=== PATIENT | female | born 1975 | race Two or more races ===

== ENCOUNTER 2019-07-02 06:45 | Observation (INO) | payer OTHER ==
[2019-07-02] VITALS (14 sets, daily range): BP systolic 104–124; BP diastolic 51–71
[~2019-07-02] VITALS: Ht 157.5 cm; Wt 98.0 kg
[~2019-07-02 06:45] MED LIST: HYDROcodone/Acetamin 10/325 tab ORAL PRN; NKM
[2019-07-02] MEDS ORDERED: Dexamethasone 20mg/5ml IVP ONE (07:00)
[2019-07-02] MEDS ORDERED: ceFAZolin sod 1 GM in NS 55 ML IVPB ONE (07:00)
[2019-07-02] MEDS ORDERED: HYDROcodone/Acetamin 10/325 tab ORAL PRN ×2 (07:30)
[2019-07-02] MEDS ORDERED: HYDROmorphone 1mg/ml Carpuject SUBQ PRN (07:30)
[2019-07-02] MEDS ORDERED: LR 1000ml 1,000 ML IVLG SCH (08:29)
[2019-07-02] MEDS ORDERED: fentaNYL 100 mcg/2 mL IV PRN (08:30)
[2019-07-02] MEDS ORDERED: HYDROcodone/Acetamin 7.5/325 tab ORAL PRN (08:30)
[2019-07-02] MEDS ORDERED: Atropine Sulfate 0.4mg/ml inj IVP PRN (08:30)
[2019-07-02] MEDS ORDERED: Hydromorphone 0.5mg/0.5ml inj IVP PRN (08:30)
[2019-07-02] MEDS ORDERED: HYDROcodone/Acetamin 5/325 tab ORAL PRN (08:30)
[2019-07-02] MEDS ORDERED: Ketorolac 30mg Inj IV PRN ×2 (08:30)
[2019-07-02] MEDS ORDERED: Meperidine 50mg/ml Inj(FOR RIGORS ONLY) IVP PRN (08:30)
[2019-07-02] MEDS ORDERED: DiphenhydrAMINE 50mg/ml Inj IVP PRN (08:30)
[2019-07-02] MEDS ORDERED: LORazepam Inj 2mg/ml 1ml IV PRN (08:30)
[2019-07-02] MEDS ORDERED: oxyCODONE HCL/Acetaminophen 5/325mg ORAL PRN (08:30)
[2019-07-02] MEDS ORDERED: Acetaminophen (Non formulary) 100 ML IV ONE (08:30)
[2019-07-02] MEDS ORDERED: Midazolam 2mg/2ml Inj IVP PRN (08:30)
--- NOTE | 2019-07-02 08:37 | Anethesia Preoperative Eval ---
Anesthesia Pre-op PMH/ROS General Date of Evaluation: Jul 02, 2019 Time of Evaluation: 09:52 Anesthesiologist: Art ASA Score: ASA 2 Mallampati Score Class I : Soft palate, uvula, fauces, pillars visible Class II: Soft palate, uvula, fauces visible Class III: Soft palate, base of uvula visible Class IV: Only hard plate visible Mallampati Classification: Class II Surgeon: Veda Diagnosis: Back Pain Surgical Procedure: L4-5 Microdiscectomy, Decompression Anesthesia History: none Family History: no anesthesia problems Allergies: Coded Allergies: Shrimp (Verified Allergy, Mild, 06/29/19) ITCHING Medications: see eMAR Patient NPO?: Yes NPO Date: Jul 01, 2019 NPO Time: 2100 Past Medical History Hematology/Immune: Reports: anemia Other: obesity - BMI 40 Morbid Anesthesia Pre-op Phys. Exam Physician Exam Last Vital Signs Date Time Temp Pulse Resp B/P (MAP) Pulse Ox O2 Delivery O2 Flow Rate FiO2 07/02/19 07:33 98.2 62 18 124/71 (88) 100 07/02/19 07:29 Room Air Constitutional: NAD Neurologic: CN 2-12 intact Cardiovascular: RRR Respiratory: CTA Gastrointestinal: S/NT/ND Airway Exam Mallampati Score: Class II MO: full ROM: limited Teeth: missing, intact Anesthesia Pre-op A/P Labs Urine Test Test 07/02/19 07:00 Urine HCG, Qualitative Negative (NEGATIVE) Risk Assessment & Plan Assessment: ASA 2 Plan: GA, SED, GlideScope Go Status Change Before Surgery: No Pre-Antibiotics Dru Grams Ancef IV Given Within 1 Hr of Incision: Yes Time Given: 10:42 Connor Cordova MD Jul 02, 2019 08:37
--- NOTE | 2019-07-02 08:38 | Immediate Post-Op Evaluation ---
Immediate Post-Op Evalulation Immediate Post-Op Evalulation Procedure: L4-5 Microdiscectomy, Decompression Date of Evaluation: Jul 02, 2019 Time of Evaluation: 12:39 IV Fluids: 1000 LR Blood Products: 0 Estimated Blood Loss: 50 Urinary Output: 0 Blood Pressure Systolic: 124 Blood Pressure Diastolic: 67 Pulse Rate: 60 Respiratory Rate: 16 O2 Sat by Pulse Oximetry: 100 Temperature (Fahrenheit): 97.9 Pain Score (1-10): 2 Nausea: No Vomiting: No Complications 0 Patient Status: awake, reacts, patent, extubated, none Hydration Status: adequate Dru Grams Ancef IV Given Within 1 Hr of Incision: Yes Time Given: 10:42 Connor Cordova MD Jul 02, 2019 08:38
[2019-07-02] MEDS ORDERED: Docusate 100mg/10ml Liq NG SCH (09:00)
--- NOTE | 2019-07-02 09:17 | Pre-Procedure Note/Attestation ---
Pre-Procedure Note/Attestation Complete Prior to Procedure Planned Procedure: not applicable Procedure Narrative: Microdiscectomy L4-L5 Indications for Procedure Pre-Operative Diagnosis: pain radiculopathy Attestation I attest that I discussed the nature of the procedure; its benefits; risks and complications; and alternatives (and the risks and benefits of such alternatives ), prior to the procedure, with the patient (or the patient's legal community engagement representative). I attest that, if there was a reasonable possibility of needing a blood transfusion, the patient (or the patient's legal community engagement representative) was given the [facility] standardized written summary, pursuant to the [place] Blood Safety Act ([place] Health and Safety Code # 1645, as amended). I attest that I re-evaluated the patient just prior to the surgery and that there has been no change in the patient's H&P, except as documented below: Chris Mccollum MD Jul 02, 2019 09:17
[2019-07-02] MEDS ORDERED: Bacitracin 50000 Units Vial ONE (09:43)
[2019-07-02] MEDS ORDERED: Gelfoam Size TOPIC ONE (09:43)
[2019-07-02] MEDS ORDERED: Thrombin 5000 units TOPIC ONE (09:43)
[2019-07-02] MEDS ORDERED: Labetalol 5mg/ml 20ml vial IV ONE (10:00)
[2019-07-02] MEDS ORDERED: NS Irrig 1000ml ONE (10:00)
[2019-07-02] MEDS ORDERED: Propofol 1,000mg/ 100ml btl IV ONE (10:00)
[2019-07-02] MEDS ORDERED: Sterile Water Irrig 1000ml IRRIG ONE (10:00)
[2019-07-02] MEDS ORDERED: LR 1000ml ONE (10:00)
[2019-07-02] MEDS ORDERED: Rocuronium Bromide 50mg/5ml Inj IV ONE (10:00)
[2019-07-02] MEDS ORDERED: Dexamethasone 4mg/ml vial ONE (10:01)
[2019-07-02] MEDS ORDERED: Lidocaine 1% MPF 10mg/ml 5ml ONE (10:01)
[2019-07-02] MEDS ORDERED: Lidocaine 1% Plain 30 ml INJ ONE (10:01)
[2019-07-02] MEDS ORDERED: Sodium Chloride 10ml vial INJ ONE (10:01)
[2019-07-02] MEDS ORDERED: fentaNYL 100 mcg/2 mL IV ONE ×2 (10:09→11:17)
[2019-07-02] MEDS ORDERED: Glycopyrrolate 0.2mg/ml 1ml Vial ONE (11:37)
[2019-07-02] MEDS ORDERED: Neostigmine 1mg/ml 10ml Inj ONE (11:37)
[2019-07-02] MEDS ORDERED: Naloxone 0.4mg/ml Inj ONE (12:01)
--- NOTE | 2019-07-02 12:02 | Brief Operative Note ---
Immediate Post Operative Note Operative Note Pre-op Diagnosis: pain radiculopathy Procedure: Hemilaminotomy, discectomy Left L4-L5 Post-op Diagnosis: same as pre-op Findings: consistent w/pre-op dx studies Surgeon: Veda MARKS Histology Specialist: Edie YEE Anesthesiologist: Art MARKS Anesthesia: general Specimen: yes Complications: none Condition: stable Fluids: anesthesia Estimated Blood Loss: minimal Drains: none Implant(s) used?: No Chris Mccollum MD Jul 02, 2019 12:02
[2019-07-02] MEDS ORDERED: Naloxone 0.4mg/ml Inj IVP PRN (12:15)
--- NOTE | 2019-07-02 14:55 | NUR ---
NURSE NOTES: Received patient on bed in stable condition. Alert and oriented x4. Complain of pain 4/10 on surgical site and pain medication given by recovery nurse. Will continue to monitor. Surgical dressing intact and dry and ice pack applied. IV dressing intact and dry. Belonging checked. Bed lowest position. Call light within reach. Will continue to monitor.
[2019-07-02] MEDS ORDERED: D5 1/2NS 1,000 ML IV SCH (15:25)
[2019-07-02] MEDS ORDERED: Chloraseptic Spray 20mL Bottle ORAL PRN (15:25)
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
--- NOTE | 2019-07-02 17:04 | NUR ---
NURSE NOTES: Pt walked to restroom with assistance refused to use walker. Required to be reminded to change positions slowly. Log roll implemented. Instruction sheet for log roll provided. States she is not in pain but has difficulty placing self in a comfortable position. Tolerated fluids denied nausea. Denied dizziness after walking to restroom. Call light is in reach. Family member is at bedside
--- NOTE | 2019-07-02 17:11 | NUR ---
NURSE NOTES: V/S 132/61 p72, temp 99.7 r18 O2 saturation 97
[2019-07-02] MEDS ORDERED: Docusate 100mg cap ORAL SCH (18:00)
[2019-07-02] MEDS ORDERED: ceFAZolin sod 1 GM in D5W 55 ML IV SCH (18:30)
--- NOTE | 2019-07-02 18:30 | Operative Note - Dictated ---
DATE OF OPERATION: 07/02/2019 PRIMARY SURGEON: Chris Mccollum, Ph.D., M.D. CHARGE ACCOUNT IDENTIFICATION CLERK: NAKIA Navarrete. ANESTHESIOLOGIST: Connor Cordova M.D. ANESTHESIA: General with intubation. ESTIMATED BLOOD LOSS: Minimal. COMPLICATIONS: None. POSTOPERATIVE CONDITION: Good/stable. SPECIMEN: Disk fragments to pathology, L4-L5. ADMITTING PREOPERATIVE DIAGNOSIS: Post-trauma back pain/radiculopathy. POSTOPERATIVE DIAGNOSIS: Post-trauma back pain/radiculopathy. OPERATIVE PROCEDURE: 1. Left L4-5 hemilaminotomy. 2. Microdiscectomy. 3. Nerve root decompression. 4. High-powered magnification dissection. 5. SSEP monitoring. 6. Intraoperative fluoroscopy interpreted by surgeon. DESCRIPTION OF PROCEDURE: The patient was brought to the operating room and in the supine position, general anesthesia with intubation was induced. IV antibiotics, IV Decadron were administered 30 minutes prior to incision time. After appropriate position in the prone position, lumbodorsal spine was sterilely prepped. A spinal needle was placed percutaneously under sterile conditions through dermis epidermis into the subcutaneous tissue only and a cross-table fluoroscopic image was obtained, interpreted by surgeons demonstrating the correct level for incision placement. Needle was removed. Back was re-sterilely prepped and draped free in usual sterile fashion. A longitudinal incision over the appropriate interval was sharply placed through the dermis and epidermis. Electrocautery dissection was carried through the subcutaneous tissue to the level of the lumbodorsal fascia. It was incised and left in midline over the appropriate intervals. Marker was placed at the appropriate interval after subperiosteal elevation of paraspinal muscles and cross-table fluoroscopic image was obtained demonstrating a correct level for further dissection. Level was marked. Marker removed. Retractors placed. Hemilaminotomy was performed but not through the posterior longitudinal ligament/ligamentum flavum. Subperiosteal dissection of paraspinal muscles, left. Facet capsule maintained integrity. Pars articularis exposed. Retractors were appropriately placed. Hemilaminotomy inferior L4, superior L5 with [place] Hang bur and [place] rongeur dissection. No dural tears or leaks noted anytime during the procedure. Ligamentum flavum excised. Dissection carried lateral to the dural tube, nerve root sheath with decompression laterally and foraminotomy. Pars articularis integrity maintained. Microdiscectomy to a maximum depth of 12 mm after annular incision. No gross bleeding from the disk space. Disk space irrigated. No further fragments identified. General probing revealed no further compression of exiting nerve roots. Negative foraminal stenosis. Bleeding bone was cauterized with application of sterile wax. Re-irrigated with antibiotic-containing saline. Sequential reapproximation of the lumbodorsal fascia, subcutaneous tissue, dermis and epidermis. Surgical strips applied followed with sterile bandage maintained in place with tape. The patient was carefully turned from the prone to the supine position on the transport bed where she was awakened, extubated in the operating room, transported to postop recovery in good stable condition. Chris Mccollum M.D. DR: Olaf JOB#: [id number] CC:
--- NOTE | 2019-07-02 18:32 | NUR ---
NURSE NOTES: Pt tolerated meal no nausea or vomiting . V/S 130/80 pulse 90 t97.8 . No pain gait steady but slow. Discharge instructions to include, FAQ related to surgery, lumbar surgery facts, back exercises when tolerated. Pt informed of importance of not bending twisting or carrying heavy items. Educated on s/s of infection, fever , increase pain , warmth to site. Verbalized understanding. IV removed, discharged packet given escorted to exit along with significant other and sister. Pt in stable condition. Dr. Mccollum number included in packet along with symptoms to follow up with Dr Mccollum about
--- NOTE | 2019-07-02 18:37 | NUR ---
NURSE NOTES: Dose of antibiotics given possible side effects reported or noted.
[2019-07-03 09:54] VITALS: BP 104/87
--- NOTE | 2019-07-03 09:54 | 48 Hour Post Anesthesia Eval ---
Post Anesthesia Evaluation Procedure: L4-5 Microdiscectomy, Decompression Date of Evaluation: Jul 02, 2019 Time of Evaluation: 16:59 Blood Pressure Systolic: 104 0: 87 Pulse Rate: 92 Respiratory Rate: 16 Temperature (Fahrenheit): 97.5 O2 Sat by Pulse Oximetry: 98 Airway: patent Nausea: No Vomiting: No Pain Intensity: 2 Hydration Status: adequate Cardiopulmonary Status: Stable Mental Status/LOC: patient returned to baseline Follow-up Care/Observations: 0 Post-Anesthesia Complications: 0 Follow-up care needed: ready to discharge Connor Cordova MD Jul 03, 2019 09:54
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
== END 2019-07-02 18:30 | disposition home or self-care (01) ==
LOC: SDS 06:45 → EDSTATUS 07:00 → 3E 15:24
DX: M54.16 Radiculopathy, lumbar region (principal); E66.01 Morbid (severe) obesity due to excess calories; Z91.013 Allergy to seafood; Z68.39 Body mass index [BMI] 39.0-39.9, adult
CPT/HCPCS: 36415; 63047; 72020; 76000; 81025; 86850; 86900; 86901; 87081; J0690; J1100; J1170; J1885; J2001; J2250; J2310; J2405; J2704; J2710; J3010; 94003; 94150

== ENCOUNTER 2020-07-02 07:00 | Inpatient (IN) | payer OTHER ==
[~2020-07-02] VITALS: Ht 160 cm; Wt 103.0 kg
[~2020-07-02 07:00] MED LIST changes: -HYDROcodone/Acetamin 10/325 tab ORAL PRN
[2020-07-17] VITALS (18 sets, daily range): BP systolic 115–136; BP diastolic 60–78
[2020-07-17] MEDS ORDERED: NS Irrig 1000ml ONE (06:00)
[2020-07-17] MEDS ORDERED: Succinylcholine 20mg/ml 10ml vial ONE (06:00)
[2020-07-17] MEDS ORDERED: Sterile Water Irrig 1000ml IRRIG ONE (06:00)
--- NOTE | 2020-07-17 06:42 | Anethesia Preoperative Eval ---
Anesthesia Pre-op PMH/ROS General Date of Evaluation: Jul 17, 2020 Time of Evaluation: 07:01 Anesthesiologist: Art ASA Score: ASA 3 Mallampati Score Class I : Soft palate, uvula, fauces, pillars visible Class II: Soft palate, uvula, fauces visible Class III: Soft palate, base of uvula visible Class IV: Only hard plate visible Mallampati Classification: Class III Surgeon: Veda Diagnosis: Back Pain Surgical Procedure: ALIF L4-5, L5-S1 Anesthesia History: none Family History: no anesthesia problems Allergies: Coded Allergies: Shrimp (Verified Allergy, Mild, 06/29/19) ITCHING Medications: see eMAR Patient NPO?: Yes Past Medical History Cardiovascular: Reports: HTN Hematology/Immune: Reports: anemia Other: obesity - Morbid BMI 42 Anesthesia Pre-op Phys. Exam Physician Exam Last Vital Signs Date Time Temp Pulse Resp B/P (MAP) Pulse Ox O2 Delivery O2 Flow Rate FiO2 07/17/20 05:58 Room Air 07/17/20 05:56 98.2 79 18 117/72 (87) 97 Constitutional: NAD Neurologic: CN 2-12 intact Cardiovascular: RRR Respiratory: CTA Gastrointestinal: S/NT/ND Airway Exam Mallampati Score: Class III MO: limited ROM: limited Teeth: intact Anesthesia Pre-op A/P Labs Urine Test Test 07/17/20 05:35 Urine HCG, Qualitative Negative (NEGATIVE) Risk Assessment & Plan Assessment: ASA 3 Plan: GA, SED, GlideScope Status Change Before Surgery: No Pre-Antibiotics Dru Grams Ancef IV Given Within 1 Hr of Incision: Yes Time Given: 07:31 Connor Cordova MD Jul 17, 2020 06:42
[2020-07-17] MEDS ORDERED: Ropivacaine 5mg/ml Vial 30ml INJ ONE (06:43)
[2020-07-17] MEDS ORDERED: Lidocaine 1%/ 10mg/ml/EPI 0.01mg/ml 20ml INJ ONE (06:43)
[2020-07-17] MEDS ORDERED: Gelfoam Size TOPIC ONE (06:43)
[2020-07-17] MEDS ORDERED: Thrombin 5000 units TOPIC ONE (06:43)
[2020-07-17] MEDS ORDERED: Heparin 5000 units/ml inj ONE (06:43)
[2020-07-17] MEDS ORDERED: Lidocaine 1% MPF 10mg/ml 5ml ONE (06:44)
[2020-07-17] MEDS ORDERED: Lidocaine 1% Plain 30 ml INJ ONE ×3 (06:44→08:51)
[2020-07-17] MEDS ORDERED: Bupivacaine 0.5% Inj 30 ml vial INJ ONE (06:44)
[2020-07-17] MEDS ORDERED: Sodium Chloride 10ml vial INJ ONE (06:44)
[2020-07-17] MEDS ORDERED: Bacitracin 50000 Units Vial ONE (06:44)
[2020-07-17] MEDS ORDERED: Hydromorphone 0.5mg/0.5ml inj IVP PRN (06:45)
[2020-07-17] MEDS ORDERED: Meperidine 25mg/1ml Inj (FOR RIGORS ONLY) IV PRN (06:45)
[2020-07-17] MEDS ORDERED: LR 1000ml 1,000 ML IVLG SCH (06:45)
[2020-07-17] MEDS ORDERED: Acetaminophen (Non formulary) 100 ML IV ONE (06:45)
[2020-07-17] MEDS ORDERED: Ketorolac 30mg Inj IV PRN ×2 (06:45)
[2020-07-17] MEDS ORDERED: fentaNYL 100 mcg/2 mL IV PRN (06:45)
[2020-07-17] MEDS ORDERED: Labetalol 5mg/ml 20ml vial IV PRN (06:45)
[2020-07-17] MEDS ORDERED: Atropine Sulfate 0.4mg/ml inj IVP PRN (06:45)
[2020-07-17] MEDS ORDERED: oxyCODONE HCL/Acetaminophen 5/325mg ORAL PRN (06:45)
[2020-07-17] MEDS ORDERED: DiphenhydrAMINE 50mg/ml Inj IVP PRN (06:45)
[2020-07-17] MEDS ORDERED: HYDROcodone/Acetamin 5/325 tab ORAL PRN (06:45)
[2020-07-17] MEDS ORDERED: HYDROcodone/Acetamin 7.5/325 tab ORAL PRN (06:45)
[2020-07-17] MEDS ORDERED: Midazolam 2mg/2ml Inj IVP PRN (06:45)
[2020-07-17] MEDS ORDERED: LORazepam Inj 2mg/ml 1ml IV PRN (06:45)
[2020-07-17] MEDS ORDERED: Metoclopramide 10mg/2ml Inj IVP PRN (06:45)
[2020-07-17] MEDS ORDERED: Rocuronium Bromide 50mg/5ml Inj IV ONE (06:48)
[2020-07-17] MEDS ORDERED: ceFAZolin sod 1 GM in NS 55 ML IVPB ONE (07:00)
--- NOTE | 2020-07-17 07:31 | Pre-Procedure Note/Attestation ---
Pre-Procedure Note/Attestation Complete Prior to Procedure Planned Procedure: not applicable Procedure Narrative: ALIF L4-L5, L5-S1, Anterior Plate Fixation Indications for Procedure Pre-Operative Diagnosis: Post trauma discogenic backpain Attestation I attest that I discussed the nature of the procedure; its benefits; risks and complications; and alternatives (and the risks and benefits of such alternatives), prior to the procedure, with the patient (or the patient's legal market survey representative). I attest that, if there was a reasonable possibility of needing a blood transfusion, the patient (or the patient's legal market survey representative) was given the [place] [facility] Services standardized written summary, pursuant to the Jose Manuel [place] Blood Safety Act ([place] Health and Safety Code # 1645, as amended). I attest that I re-evaluated the patient just prior to the surgery and that there has been no change in the patient's H&P, except as documented below: Chris Mccollum MD Jul 17, 2020 07:31
--- NOTE | 2020-07-17 08:05 | Immediate Post-Op Evaluation ---
Immediate Post-Op Evalulation Immediate Post-Op Evalulation Procedure: ALIF L4-6, L5-S1 Date of Evaluation: Jul 17, 2020 Time of Evaluation: 10:57 IV Fluids: 800 LR Blood Products: 0 Estimated Blood Loss: 50 Urinary Output: 300 Blood Pressure Systolic: 141 Blood Pressure Diastolic: 62 Pulse Rate: 95 Respiratory Rate: 16 O2 Sat by Pulse Oximetry: 100 Temperature (Fahrenheit): 97 Pain Score (1-10): 2 Nausea: No Vomiting: No Complications 0 Patient Status: awake, reacts, patent, extubated, none Hydration Status: adequate Dru Grams Ancef IV Given Within 1 Hr of Incision: Yes Time Given: 07:31 Connor Cordova MD Jul 17, 2020 08:05
[2020-07-17] MEDS ORDERED: fentaNYL 100 mcg/2 mL IV ONE (08:49)
[2020-07-17] MEDS ORDERED: Glycopyrrolate 0.2mg/ml 1ml Vial ONE (10:06)
--- NOTE | 2020-07-17 10:16 | Brief Operative Note ---
Immediate Post Operative Note Operative Note Pre-op Diagnosis: Post trauma discogenic backpain Procedure: ALIF L4-L5, L5-S1 Anterior Plates L4-L5, L5-S1 osteopromotive Bio4 material Titanium interbody devices Anterior Plates L4-L5, L5-S1 Post-op Diagnosis: same as pre-op Findings: consistent w/pre-op dx studies Surgeon: Veda avina Additional Surgeons: Rusty AVINA Anesthesiologist: Art AVINA Anesthesia: general Specimen: yes Complications: none Condition: stable Fluids: anesthesia Estimated Blood Loss: minimal Drains: none Implant(s) used?: Yes Chris Mccollum MD Jul 17, 2020 10:16
[2020-07-17] MEDS ORDERED: HYDROmorphone 1mg/ml Carpuject SUBQ PRN (10:30)
[2020-07-17] MEDS ORDERED: Naloxone 0.4mg/ml Inj IVP PRN (10:30)
[2020-07-17] MEDS ORDERED: PCA HYDROmorphone 1mg/ml 30 ML IV PRN ×3 (10:30→12:30)
[2020-07-17] MEDS ORDERED: Chloraseptic Spray 20mL Bottle ORAL PRN (10:30)
[2020-07-17] MEDS ORDERED: HYDROcodone/Acetamin 10/325 tab ORAL PRN (10:30)
--- NOTE | 2020-07-17 10:51 | 48 Hour Post Anesthesia Eval ---
Post Anesthesia Evaluation Procedure: ALIF L4-6, L5-S1 Date of Evaluation: Jul 17, 2020 Time of Evaluation: 13:23 Blood Pressure Systolic: 124 0: 71 Pulse Rate: 81 Respiratory Rate: 18 Temperature (Fahrenheit): 98 O2 Sat by Pulse Oximetry: 99 Airway: patent Nausea: No Vomiting: No Pain Intensity: 2 Cardiopulmonary Status: Stable Mental Status/LOC: patient returned to baseline Follow-up Care/Observations: 0 Post-Anesthesia Complications: 0 Follow-up care needed: N/A Connor Cordova MD Jul 17, 2020 10:51
[2020-07-17] MEDS ORDERED: Rate Change PCA 1 Each MISC PRN (11:30)
[2020-07-17] MEDS ORDERED: PCA Education Pamphlet MISC SCH (11:45)
--- NOTE | 2020-07-17 12:35 | NUR ---
NURSE NOTES: Patient received from PACU via bed to 321-2 on O2 3LNC, in stable condition. Patient sleeping, awakens easily to name. Neuro checks done, skin warm, wiggles, 3/5, pulses palpable. IV/SENIOR INFORMATICA DEVELOPER (Dilaudid 0.2 mg bolus/every 10 minutes/4.8 mg lockout) to left hand, site asymptomatic. Anterior abdomen surgical dressing CDI, ice pack in place. Bilateral SCDs on. FC, y/cl in drainage bag. Clear liquids provided. Denies pain, SOB, NV. Belongings reviewed, all at bedside. Oriented patient to call light/SENIOR INFORMATICA DEVELOPER button, bed in lowest position, will continue to monitor. Called RT for CO2 monitoring and IS. Chloraseptic spray at bedside.
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
[2020-07-17] MEDS: D5 1/2NS 1,000 ML IV SCH ×2 (13:27→21:00)
--- NOTE | 2020-07-17 14:22 | NUR ---
NURSE NOTES: Spoke to Dr. Massey regarding patient current status. Orders received for "clear liquids only". Will follow as ordered.
--- NOTE | 2020-07-17 14:27 | Diagnostic Imaging Report ---
INDICATION: Pain, intraoperative TECHNIQUE: Intraoperative imaging Fluoroscopy time: 30 seconds Total dose: 0.94817 mGym2 Total number of images: 3 COMPARISON: None FINDINGS: Intraoperative images demonstrate surgical tools projected anterior to what are presumably the L4-5 disc and L5 vertebral body. Subsequent images demonstrate anterior fusion hardware bridging L4-5 and L5-S1. IMPRESSION: Intraoperative imaging, as described
--- NOTE | 2020-07-17 16:14 | Operative Note - Dictated ---
DATE OF OPERATION: 07/17/2020 VASCULAR SURGEON: Laurent Ojeda MD SPINE SURGEON: Chris Mccollum MD PREOPERATIVE DIAGNOSIS: Lumbar pain. POSTOPERATIVE DIAGNOSIS: Lumbar pain. PROCEDURE: 1. Anterior retroperitoneal exposure of L4-L5 vertebral interspace, left retroperitoneal approach. 2. Anterior retroperitoneal exposure of L5-S1 vertebral interspace, left retroperitoneal approach. INDICATIONS: Patient is a very pleasant woman who is seen prior to surgery. She has been scheduled for anterior spine operation L4-L5 and L5-S1. She denies any prior anterior spine surgery. No history of deep vein thrombosis or bleeding complications were noted. She is noted to be obese with a BMI in the 35 to 40 range with a large abdominal pannus. The need for somewhat larger incision was carefully explained to her. She understands some increased risk with vascular surgery for closure of lumbar spine. The risks of vascular injury, possible need for blood transfusion, deep venous thrombosis were all discussed with her. DESCRIPTION OF FINDINGS: A vertical midline incision was used. A left retroperitoneal approach was used. There was no peritoneal or ureteral violation. There was no vascular injury. There was extensive scarring over the anterior surface of L5 due to an inflammatory and osteophytic reaction and the left iliac vein was densely adherent to the anterior surface of L5, making blood mobilization more difficult. However exposure of both L4-L5 and L5-S1 were able to be obtained without vascular injury. Upon completion, the peritoneum and ureter were intact. The iliac vessels were intact. Blood loss was less than 100 mL and complications were none. Patient had palpable femoral pedal pulses and normal pulse oximetry in the left foot as well as normal neurologic monitoring throughout the case. DESCRIPTION OF PROCEDURE: Patient was taken to the operative room. General anesthesia was induced. Antibiotics were given. Patient's abdomen was prepped and draped. Appropriate time-out was taken. A low vertical midline incision made infraumbilically. The anterior fascia incised longitudinally in the midline. A plane was identified posterior to the left rectus abdominal to the posterior bladder to the patient's left. Retroperitoneal space was bluntly entered below the arcuate line. The peritoneum and ureter mobilized towards the patient's right exposing the left common iliac artery and vein. Dissection was carried superiorly along the left iliac vessels and dissection was carried lateral to the left common iliac artery and vein. The overlying lymphatics were ligated with vascular clips. The iliolumbar vein was identified. It was encircled using a 2-0 silk tie and ligated proximally. It was then ligated proximally and distally with vascular clips. The L4 segmental artery and vein were also identified and ligated with vascular clips and divided. At this time, blunt dissection was used to mobilize the left iliac vein off the anterior surface of L4-L5. Inferior to L4-L5, the vein itself was quite adherent and careful blunt dissection was required to mobilize the vein off of the anterior surface of L4-L5. The Omni retractor blades were then placed. Fluoroscopy used to confirm the appropriate level. The instrumentation performed at L4-L5 dictated separately. below the iliac bifurcation and then dissection carried on the undersurface of left common iliac vein. The middle sacral artery and vein were identified, ligated with vascular clips and divided, and then once again, blunt dissection was used to mobilize the left iliac artery and vein superiorly and laterally. The Omni retractor blades were set in place. Fluoroscopy was once again used to confirm the appropriate level and then instrumentation was performed at the L5-S1 dictated separately. On completion, retractor was gently removed. The peritoneum and ureter were intact. Iliac vessels were intact. Anterior fascia was then closed using #1 PDS in running fashion and the skin and subcutaneous tissue were then closed with 3-0 Vicryl, 4-0 Monocryl in a running subcuticular closure technique. ESTIMATED BLOOD LOSS: Less than 100 mL. COMPLICATIONS: None. Laurent Ojeda M.D. DR: SCARLET JOB#: [id number] CC: Tianna Joseph M.D. ; FAX#: [phone]
[2020-07-17] MEDS: ceFAZolin sod 1 GM in D5W 55 ML IV SCH ×2 (16:25→23:30)
[2020-07-17] MEDS ORDERED: D5 1/2NS 1000ml IV ONE (16:34)
--- NOTE | 2020-07-17 16:44 | NUR ---
CASE MANAGEMENT:[age] YR OLD FEMALE FROM HOME FOR PLANNED SURGERY CC;POST TRAUMATIC DISCOGENIC BACK PAIN SI;OPERATIVE DAY: 1. Anterior retroperitoneal exposure of L4-L5 vertebral interspace, left retroperitoneal approach. 2. Anterior retroperitoneal exposure of L5-S1 vertebral interspace, left retroperitoneal approach. 98.2 98 20 135/69 97% ON RA RAPID COVID ~ NEGATIVE LUMBAR XRAY ~ ntraoperative images demonstrate surgical tools projected anterior to what are presumably the L4-5 disc and L5 vertebral body. Subsequent images demonstrate anterior fusion hardware bridging L4-5 and L5-S1. IS;CEFAZOLIN IV DILAUDID LAY HEALTH ADVOCATE IV DILAUDID IV DECADRON IV IVF LR ACETAMINOPHEN IV ADMITTED TO MED SURG FOR POST OP CARE MED SURG STATUS DCP;FROM HOME
[2020-07-17] MEDS: PCA shift volume MISC SCH (19:00)
--- NOTE | 2020-07-17 19:15 | Operative Note - Dictated ---
DATE OF OPERATION: 07/17/2020 SURGEON: Chris Mccollum, PhD, MD ADDITIONAL SURGEON: Laurent Ojeda MD, Vascular Surgery ADMITTING/PREOPERATIVE DIAGNOSIS: Posttraumatic discogenic back pain, failed back L4-L5, L5-S1. OPERATIVE PROCEDURE: 1. Anterior diskectomy with reconstruction/fusion correction deformity L4-L5, L5-S1. 2. Anterior internal plate fixation L4-L5, L5-S1. 3. Interbody titanium device was placed lordotic with correction deformity (internal fixation screws not integral to the interbody spacer) L4-L5, L5-S1. 4. Placement of osteopromotive material BIO-4 at L4-L5 and L5-S1. 5. SSEP monitoring. 6. High-powered dissection. 7. Intraoperative fluoroscopy interpreted by surgeons. PROCEDURE: Anterior exposure performed with Dr. Ojeda, Dr. Mccollum assist. Please see separate report for exposure and closure. The L5-S1 interval was determined with placement of a spinal needle 3 mm into the anterior disk space. ANESTHESIA: General with intubation, Dr. Chambers. ESTIMATED BLOOD LOSS: Minimal. COMPLICATIONS: None. POSTOPERATIVE CONDITION: Good/stable. SPECIMENS: Disk fragment L4-L5, L5-S1 to pathology. PROCEDURE: 1. Anterior lumbar interbody reconstruction and fusion with diskectomy L4-L5, L5-S1. 2. Correction deformity. 3. Placement of interbody devices titanium without integral internal fixation screws L4-L5, L5-S1. 4. Placement of osteopromotive material at L4-L5 and L5-S1. 5. Anterior internal plate fixation L4-L5, L5-S1. 6. SSEP monitoring. 7. High-powered magnification, dissection. 8. Intraoperative fluoroscopy interpreted by surgeons. PROCEDURE IN DETAIL: The patient was brought to the operating room and in the supine position, general anesthesia with intubation was induced. IV antibiotics, IV Decadron were administered 30 minutes prior to incision time. Anterior exposure - please see separate report Vascular Surgery, Dr. Ojeda. L4-L5 interval was identified with placement of a spinal needle 3 mm into the mid aspect with AP lateral fluoroscopic images obtained demonstrating correct level as well as midline. Annulotomy was performed sharply under high-power magnification. Diskectomy to but not through the posterior longitudinal ligament. End-plates denuded of cartilaginous endplates. Midas Hang bur dissection utilized for development of a flat plane of the inferior L4 vertebral body. Appropriate trials were utilized to determination of the appropriate spacer undertaken. Appropriate spacer opened sterilely and packed with osteopromotive material with local autograft. The spacer lordotic was tamped into excellent position AP and lateral planes. Patient remained stable at all times. Anterior internal plate fixation was undertaken in the bilateral cortical cancellous screws into the L4 and L5 vertebral bodies in a compressive fashion through the locking plate. Purchase was excellent. Attention was turned to the L5-S1 interval. Loss of disk space noted. Annulotomy performed sharply with diskectomy to the posterior longitudinal ligament. End-plates denuded of cartilaginous bone. Bleeding bone encountered without violation of the subchondral bone. After appropriate trials, the appropriate interbody titanium device was opened sterilely, packed with BIO-4 osteopromotive material with local autograft. It was tamped into excellent position under AP and lateral fluoroscopic images and direct observation. Anterior plate fixation undertaken in compressive mode with bilateral screws at L5 bilateral S1. Wound was irrigated with antibiotic-containing saline. Exploration did not reveal any laceration or violation of vital structures. No cerebrospinal fluid leakage was noted anytime during the procedure. SSEP monitoring remained stable throughout the procedure. Closure - please see separate dictation, Dr. Ojeda. Sterile bandage was applied, maintained in place with tape. Patient was awakened and extubated in the operating room and transported to postop recovery in good stable condition. Chris Mccollum M.D. DR: CHANO JOB#: [id number] CC:
--- NOTE | 2020-07-17 19:35 | NUR ---
NURSE HAND-OFF: Important Events on Shift:Post op patient received at 1235 Patient Status: stable Diet: clear liquids only (per Dr. Massey) Pending Orders: PT evaluation Pending Results/Labs:none Pending MD notification:none Latest Vital Signs: Temperature 98.1 , Pulse 88 , B/P 127 /78 , Respiratory Rate 16 , O2 SAT 100 , Nasal Cannula, O2 Flow Rate 2.0 . Vital Sign Comment: none Latest Godwin Fall Score: 45 Fall Risk: High Risk Safety Measures: Call light , Bed Alarm , Side Rails Side Rails x1, Bed position Low and Locked. Fall Precautions: Report given to Imelda MARTINEZ.
--- NOTE | 2020-07-17 19:40 | NUR ---
NURSE NOTES: Received report & pt from MICHELLE Calderón. Pt in bed, a&ox4, in room air. No s/s of acute distress & c/o 6/10 back pain, 9/10 hip pain, & 4/10 surgical site pain at this time. Will give PRN med as ordered & also pt has HORSE SHOW JUDGE. HORSE SHOW JUDGE setting checked. Kilpatrick intact & draining yellow urine output to gravity. Surgical dressing C/D/I. IV site intact with IVF running as ordered. HORSE SHOW JUDGE pump within reach. Plan of care discussed. Addendum: 07/17/20 at 6564 by Imelda Queen RN On O2 via NC @ 3LPM
--- NOTE | 2020-07-17 21:30 | NUR ---
NURSE NOTES: Assisted pt to chair, bed full of blood since per pt, she just got her period. Bed linen changed. Provided sanitary (maternity) pads. Cleaned pt's perineal area & helped put on underwear, made sure damon is not kinked. Assisted back to bed & provided new ice pack for surgical site. All needs met at this time & pt comfortable.
--- NOTE | 2020-07-17 23:21 | NUR ---
NURSE NOTES: Offered pt additional pain medication however pt didn't want any as of now. Pt comfortable using FIREWORKS ASSEMBLER & states it relieves her pain. RN told pt to call if she needs extra pain medication. Will continue to monitor.
[2020-07-18] MEDS: D5 1/2NS 1,000 ML IV SCH ×3 (04:01→20:15)
--- NOTE | 2020-07-18 05:02 | Pain Management Progress Note ---
Allergies: Coded Allergies: Shrimp (Verified Allergy, Mild, 06/29/19) ITCHING Vitals Vital Signs Date Time Temp Pulse Resp B/P (MAP) Pulse Ox O2 Delivery O2 Flow Rate FiO2 07/17/20 23:03 Nasal Cannula 2.0 Medications Current Medications Acetaminophen/ Butalbital/ Caffeine (Fioricet) 1 tab Q8H PRN ORAL headache; Start 07/17/20 at 10:30; Stop 08/16/20 at 10:29 Acetaminophen/ Hydrocodone Bitart ([place] 10/325) 1 tab Q3H PRN ORAL mild pain / fever; Start 07/17/20 at 10:30; Stop 07/24/20 at 10:29 Acetaminophen/ Hydrocodone Bitart ([place] 10/325) 2 tab Q4H PRN ORAL Moderate Pain (Pain Scale 4-6); Start 07/17/20 at 10:30; Stop 07/24/20 at 10:29 Al Hydroxide/Mg Hydroxide (Mylanta) 30 ml Q6H PRN ORAL gerd; Start 07/17/20 at 10:30; Stop 08/16/20 at 10:29 Carisoprodol (Soma) 350 mg Q8H PRN ORAL spasm; Start 07/17/20 at 10:30; Stop 08/16/20 at 10:29 Cefazolin Sodium 1 gm/Dextrose 55 ml @ 110 mls/hr Q8H IV Last administered on 07/17/20at 23:30; Start 07/17/20 at 16:00; Stop 07/18/20 at 08:29 Clonidine HCl (Catapres Tab) 0.1 mg Q8H PRN ORAL For High Blood Pressure; Start 07/17/20 at 10:30; Stop 10/15/20 at 10:29 Dextrose/Sodium Chloride 1,000 ml @ 125 mls/hr Q8H IV Last administered on 07/18/20at 04:01; Start 07/17/20 at 13:00; Stop 08/16/20 at 12:59 Diphenhydramine HCl (Benadryl) 25 mg Q6H PRN ORAL Itching; Start 07/17/20 at 10:30; Stop 08/16/20 at 10:29 Famotidine (Pepcid) 20 mg BID ORAL Last administered on 07/17/20at 18:42; Start 07/17/20 at 18:00; Stop 10/15/20 at 17:59 Hydromorphone HCl 30 ml @ 0 mls/hr Q24H PRN IV For Pain; Start 07/17/20 at 12:30; Stop 07/19/20 at 11:44 Hydromorphone HCl (Dilaudid) 1 mg Q3H PRN SUBQ Severe Breakthru Pain (>7); Start 07/17/20 at 10:30; Stop 07/24/20 at 10:29 Miscellaneous Medication (TRANSMISSION ASSEMBLER Rate Change) 1 ea DAILY PRN MISC rate change; Start 07/17/20 at 11:30; Stop 07/19/20 at 11:29 Miscellaneous Medication (TRANSMISSION ASSEMBLER shift volume) 1 ea Q12HR@0700,1900 MISC Last administered on 07/17/20at 19:00; Start 07/17/20 at 19:00; Stop 07/19/20 at 18:59 Naloxone HCl (Narcan) 0.1 mg PRN PRN IVP RR<12/min, pt unarousable; Start 07/17/20 at 10:30; Stop 10/15/20 at 10:29 Naloxone HCl (Narcan) 0.1 mg Q1M PRN IV RR<10/min OR SBP<90 mmHg; Start 07/17/20 at 11:45; Stop 07/19/20 at 11:44 Ondansetron HCl (Zofran) 4 mg Q4H PRN IVP Nausea & Vomiting Last administered on 07/17/20at 18:42; Start 07/17/20 at 10:30; Stop 08/16/20 at 10:29 Phenol/Menthol (Chloraseptic) 1 spray Q2H PRN ORAL sore throat Last administered on 07/17/20at 16:25; Start 07/17/20 at 10:30; Stop 10/15/20 at 10:29 Promethazine HCl (Phenergan) 12.5 mg Q8H PRN IM Nausea & Vomiting; Start 07/17/20 at 10:30; Stop 08/16/20 at 10:29 Laboratory Laboratory Tests 07/17/20 05:35: Urine HCG, Qualitative Negative Plan: I spent over sixty minutes in consultation today. A+O x 3; no SOB, CP. Neuro intact. Patient seen with nurse Martino. Continue TRANSMISSION ASSEMBLER as ordered until after lunch then d/c. Primarily left abdominal incisinal pain, which radiates to left hip. BMI 40; encouraged pt to be generous with pain meds, in order to ease out of bed with PT. Of note, pt is menstruating. Pt was using TID norco preop; considerable opioid-dependence. strongly encouraged pt to accept SQ dilaudid injections, and to use prn norco as ordered. MAR medication list reviewed. No emesis after ALIF. Await flatus. Remains NPO for now. GI: No BS No flatus No BM Encourage incentive spirometer usage. Encourage advancing ambulation with physical therapy as tolerated. SCDs for mechanical prophylaxis against deep venous thrombosis and PEs. Rx left for outpatient pain medication usage for #75 norco 10/325. Juan Massey MD Jul 18, 2020 05:02
--- NOTE | 2020-07-18 06:32 | NUR ---
NURSE HAND-OFF: Important Events on Shift: Dr. Massey seen pt, pt on her menstrual cycle, pain management with FLATTENING PRESS OPERATOR Dilaudid, pt eval needed Patient Status: stable Diet: clear liquid diet ONLY as ordered by Dr. Massey Pending Orders: none Pending Results/Labs:none Pending MD notification:none Latest Vital Signs: Temperature 98.1 , Pulse 88 , B/P 127 /78 , Respiratory Rate 16 , O2 SAT 100 , Nasal Cannula, O2 Flow Rate 2.0 . Vital Sign Comment: none Latest Godwin Fall Score: 45 Fall Risk: High Risk Safety Measures: Call light Within Reach, Bed Alarm , Side Rails Side Rails x2, Bed position Low and Locked. Fall Precautions: Yellow Socks Patient Fall Education Report given to . Addendum: 07/18/20 at 0739 by Imelda Queen RN Report given to MICHELLE Gamez.
[2020-07-18] MEDS ORDERED: LR 1000ml ONE (06:55)
[2020-07-18] MEDS: PCA shift volume MISC SCH ×2 (07:26→19:38)
--- NOTE | 2020-07-18 07:45 | NUR ---
NURSE NOTES: Pt lying in bed w/bed in lowest position and call light/HUMAN RESOURCES DIRECTOR button within reach. Pt A&Ox4, VSS, and c/o 5/10 pain; encouraged pt to press HUMAN RESOURCES DIRECTOR button as needed for pain relief. IV site intact/asymptomatic w/IVF infusing; F/C patent/draining well; and surgical dressing C/D/I. Will continue to monitor.
[2020-07-18 08:00] VITALS: BP 127/56
[2020-07-18] MEDS: ceFAZolin sod 1 GM in D5W 55 ML IV SCH (09:16)
--- NOTE | 2020-07-18 11:18 | NUR ---
P.T Note: P.T evaluation completed and tx initiated per spinal protocol. Please refer to P.T evaluation for current functional status.
[2020-07-18 12:00] VITALS: BP 116/58
--- NOTE | 2020-07-18 12:32 | NUR ---
CASE MANAGEMENT:REVIEW SI;POD #1 Anterior diskectomy with reconstruction/fusion correction deformity L4-L5, L5-S1. Anterior internal plate fixation L4-L5, L5-S1. Placement of osteopromotive material BIO-4 at L4-L5 and L5-S1. 98.1 88 18 127/78 100% 2L NC IS;CLINICAL AUDITOR PUMP PEPCID PO BID IVF D5NS IV @ 125 ML/HR CEFAZOLIN IV Q8 ZOFRAN IV Q4 PRN MED SURG STATUS DCP;FROM HOME
[2020-07-18] MEDS: HYDROcodone/Acetamin 10/325 tab ORAL PRN ×2 (15:53→20:12)
[2020-07-18 16:00] VITALS: BP 123/59
--- NOTE | 2020-07-18 19:30 | NUR ---
NURSE NOTES: Patient awake in bed, alert and oriented x4, on room air, no SOB noted. With IV access on the left hand with PRODUCT DEVELOPMENT TECHNICIAN dilaudid line per patient she doesn't use it (no more renewal after it expires tomorrow) and D5 1/2 NS @125ml/hr. With Simons catheter intact and draining well. Dressing on mid abdomen dry and intact. Encouraged the use of incentive spirometry. Instructed the use of call light for assistance. Bed in lowest and lock engaged. Will continue plan of care.
[2020-07-18 20:00] VITALS: BP 114/55
--- NOTE | 2020-07-18 20:24 | NUR ---
NURSE HAND-OFF: Important Events on Shift: Pt ambulated around unit twice w/PT and ambulates to bathroom; pt not yet passing gas. Patient Status: Stable Diet: Clear liquids (do NOT advance) Pending Orders: D/C F/C 07/19 0600 Pending Results/Labs:None Pending MD notification:None Latest Vital Signs: Temperature 97.9 , Pulse 76 , B/P 123 /59 , Respiratory Rate 18 , O2 SAT 97 , Nasal Cannula, O2 Flow Rate 2.0 . Vital Sign Comment: Stable Latest Godwin Fall Score: 45 Fall Risk: High Risk Safety Measures: Call light Within Reach, Bed Alarm , Side Rails Side Rails x2, Bed position Low and Locked. Fall Precautions: Yellow Socks Patient Fall Education Report given to MICHELLE Coto.
[2020-07-19] VITALS: BP 97/88
[2020-07-19 04:00] VITALS: BP 106/56
[2020-07-19] MEDS: HYDROcodone/Acetamin 10/325 tab ORAL PRN ×3 (04:14→23:55)
[2020-07-19] MEDS: D5 1/2NS 1,000 ML IV SCH (04:15)
--- NOTE | 2020-07-19 06:30 | NUR ---
NURSE NOTES: Simons catheter removed and pt was instructed to inform RN if she voided in 6 hours. Needs assisted.
[2020-07-19] MEDS: PCA shift volume MISC SCH (07:20)
--- NOTE | 2020-07-19 07:24 | NUR ---
NURSE HAND-OFF: Important Events on Shift: DC'd damon cath @ 6am, pain mgt, hygiene Patient Status: stable Diet: clear liquid Pending Orders: no renewal for geriatric nurse assistant Pending Results/Labs: Pending MD notification: Latest Vital Signs: Temperature 99.6 , Pulse 75 , B/P 106 /56 , Respiratory Rate 19 , O2 SAT 95 , Room Air, O2 Flow Rate 2.0 . Vital Sign Comment: Latest Godwin Fall Score: 45 Fall Risk: High Risk Safety Measures: Call light Within Reach, Bed Alarm , Side Rails Side Rails x2, Bed position Low and Locked. Fall Precautions: Yellow Socks Patient Fall Education Report given to MICHELLE Andres and Mr. Zen RN.
[2020-07-19 08:00] VITALS: BP 110/53
--- NOTE | 2020-07-19 08:12 | NUR ---
NURSE NOTES: Received report from Nnamdi MARTINEZ. Patient is awake and alert x4. Patient has left side IV 20g MECHANICAL COMMISSIONING ENGINEER dilaudid running with D5W 125 ml/hr. MECHANICAL COMMISSIONING ENGINEER will at 1141 today. Patient has anterior surgical site intact with no drainage. Her last BM was 07/15 and she still hasn't passed gas yet. But she goes to the bathroom to void. Bed is low and locked. Call light within reach. Will continue to monitor. Addendum: 07/19/20 at 0841 by Caio Zaldivar RN Patient refuses using dilaudid MECHANICAL COMMISSIONING ENGINEER. She complains of hip pain that radiates to her left leg which rated 6 out of 10. She wants [place] that she got during the night. Will continue to monitor
--- NOTE | 2020-07-19 08:41 | NUR ---
NURSE NOTES: Patient voided without damon catheter without pain. She also passed gas. But no stool at the moment. Will continue to monitor.
--- NOTE | 2020-07-19 10:18 | NUR ---
NURSE NOTES: Patient c/o swelling in left leg/ankle. On assessment, minor swelling noted, no redness or pain noted in calf. Notified Dr. Bryson MD assessed patient, no further orders received.
--- NOTE | 2020-07-19 10:32 | Pain Management Progress Note ---
Allergies: Coded Allergies: Shrimp (Verified Allergy, Mild, 06/29/19) ITCHING Vitals Vital Signs Date Time Temp Pulse Resp B/P (MAP) Pulse Ox O2 Delivery O2 Flow Rate FiO2 07/19/20 08:00 98.6 70 18 110/53 (72) 95 07/19/20 08:00 18 07/19/20 04:00 99.6 75 19 106/56 (73) 95 Medications Current Medications Acetaminophen/ Butalbital/ Caffeine (Fioricet) 1 tab Q8H PRN ORAL headache; Start 07/17/20 at 10:30; Stop 08/16/20 at 10:29 Acetaminophen/ Hydrocodone Bitart ([place] 10/325) 1 tab Q3H PRN ORAL mild pain / fever; Start 07/17/20 at 10:30; Stop 07/24/20 at 10:29 Acetaminophen/ Hydrocodone Bitart ([place] 10/325) 2 tab Q4H PRN ORAL Moderate Pain (Pain Scale 4-6) Last administered on 07/19/20at 08:59; Start 07/17/20 at 10:30; Stop 07/24/20 at 10:29 Al Hydroxide/Mg Hydroxide (Mylanta) 30 ml Q6H PRN ORAL gerd; Start 07/17/20 at 10:30; Stop 08/16/20 at 10:29 Carisoprodol (Soma) 350 mg Q8H PRN ORAL spasm; Start 07/17/20 at 10:30; Stop 08/16/20 at 10:29 Diphenhydramine HCl (Benadryl) 25 mg Q6H PRN ORAL Itching; Start 07/17/20 at 10:30; Stop 08/16/20 at 10:29 Famotidine (Pepcid) 20 mg BID ORAL Last administered on 07/19/20at 08:57; Start 07/17/20 at 18:00; Stop 10/15/20 at 17:59 Hydromorphone HCl (Dilaudid) 1 mg Q3H PRN SUBQ Severe Breakthru Pain (>7); Start 07/17/20 at 10:30; Stop 07/24/20 at 10:29 Naloxone HCl (Narcan) 0.1 mg PRN PRN IVP RR<12/min, pt unarousable; Start 07/17/20 at 10:30; Stop 10/15/20 at 10:29 Ondansetron HCl (Zofran) 4 mg Q4H PRN IVP Nausea & Vomiting Last administered on 07/18/20at 09:16; Start 07/17/20 at 10:30; Stop 08/16/20 at 10:29 Phenol/Menthol (Chloraseptic) 1 spray Q2H PRN ORAL sore throat Last administered on 07/17/20at 16:25; Start 07/17/20 at 10:30; Stop 10/15/20 at 10:29 Plan: I spent over sixty minutes in consultation today. Patient seen with nurse Mckenna. Prn norco working well for analgesia. Will d/c PROCESS ENGINEERING TECHNICIAN, and continue prn SQ dilaudid for severe pain episodes also. MAR medication list reviewed. Pt still with considerable pain by LLQ, by incision & into L hip/thigh. I reassured pt that such can by typical after her ALIF procedure. No emesis after ALIF. With + flatus, will advance diet as tolerated. Will trial full liquids for lunch, then EZ-chew for dinner. Pt is hydrating well, so will heplock IV to ease moving in and out of bed. GI: + BS + flatus No BM A+O x 3; no SOB, CP. Neuro intact. Voiding urine well after Simons d/c'd. Continue incentive spirometer usage. Vitals stable, and afebrile. Continue advancing ambulation with physical therapy as tolerated; already > 300 feet. SCDs for mechanical prophylaxis against deep venous thrombosis and PEs. Pt complained of sensation of mild left ankle foot swelling. On my examination @ bedside, left ankle showed minimal, if any, swelling compared to right ankle. No left calf 'DVT cord' palpable. It is possible that SCDs have been taxing the patient's left ankle. Right SCDs remains in-place. At this time, does not appear that a duplex ultrasound to rule out DVT is necessary, in my opinion & assessment. Expect d/c home to pt's 20yo son AFTER patient has a BM in the hospital. Pt agrees with plan. Rx left for outpatient pain medication usage for #75 norco 325. Juan Massey MD Jul 19, 2020 10:32
[2020-07-19 12:00] VITALS: BP 100/51
--- NOTE | 2020-07-19 15:21 | NUR ---
NURSE NOTES: Patient tolerated full liquid diet for lunch. Diet changed to regular diet per doctor's order. Patient is asleep. Will continue to monitor for bowel movement.
[2020-07-19 16:00] VITALS: BP 117/58
--- NOTE | 2020-07-19 19:20 | NUR ---
NURSE HAND-OFF: Important Events on Shift: Diet changed to regular. D/C planning upon BM Patient Status: Stable Diet: Regular Pending Orders: N/A Pending Results/Labs:N/A Pending MD notification:N/A Latest Vital Signs: Temperature 99.3 , Pulse 79 , B/P 117 /58 , Respiratory Rate 18 , O2 SAT 97 , Room Air, O2 Flow Rate 2.0 . Vital Sign Comment: VS stable Latest Godwin Fall Score: 45 Fall Risk: High Risk Safety Measures: Call light Within Reach, Bed Alarm , Side Rails Side Rails x2, Bed position Low and Locked. Fall Precautions: Patient Fall Education Report given to Gunner MARTINEZ.
--- NOTE | 2020-07-19 19:20 | NUR ---
NURSE NOTES: Received telephone order from Dr. Massey for regular diet (no texture modifications) and mag citrate 1/2 bottle q12hrs scheduled. Orders read back and entered. Endorsed to highway painter helper RN.
--- NOTE | 2020-07-19 19:39 | NUR ---
NURSE NOTES: Received report from Caio/ Mckenna RN. Patient seen in bed asleep and in no apparent distress nor s/s of pain. Mag Citrate was ordered to help patient with BM. Will carry out orders
[2020-07-19 20:00] VITALS: BP 105/51
[2020-07-19] MEDS: Magnesium Citrate Liq Btl ORAL SCH (20:20)
--- NOTE | 2020-07-19 22:47 | NUR ---
NURSE NOTES: Rounds done , patient was able to drink half of the mag citrate. Reports not having the urge to have BM yet. Denies any pain as of the moment.
[2020-07-20] VITALS: BP 99/49
[2020-07-20 04:00] VITALS: BP 110/59
--- NOTE | 2020-07-20 06:27 | NUR ---
NURSE HAND-OFF: Important Events on Shift: Given 0.5 bottle of Mag Citrate as ordered. Patient still has not felt the urge to have a BM but has been passing gas. Bowel sounds hyperactive in all 4 quadrants. Patient only asked pain medication x1 last night. Pain well controlled Patient Status: Stable Diet: soft easy chew regular Pending Orders: [] Pending Results/Labs:[] Pending MD notification:[] Latest Vital Signs: Temperature 98.4 , Pulse 66 , B/P 110 /59 , Respiratory Rate 18 , O2 SAT 97 , Room Air, O2 Flow Rate 2.0 . Vital Sign Comment: [] Latest Godwin Fall Score: 45 Fall Risk: High Risk Safety Measures: Call light Within Reach, Bed Alarm , Side Rails Side Rails x2, Bed position Low and Locked. Fall Precautions: Patient Fall Education
--- NOTE | 2020-07-20 07:02 | Pain Management Progress Note ---
Allergies: Coded Allergies: Shrimp (Verified Allergy, Mild, 06/29/19) ITCHING Vitals Vital Signs Date Time Temp Pulse Resp B/P (MAP) Pulse Ox O2 Delivery O2 Flow Rate FiO2 07/20/20 04:00 98.4 66 18 110/59 (76) 97 07/20/20 00:25 98.9 07/20/20 00:00 98.9 85 18 99/49 (66) 95 Medications Current Medications Acetaminophen/ Butalbital/ Caffeine (Fioricet) 1 tab Q8H PRN ORAL headache; Start 07/17/20 at 10:30; Stop 08/16/20 at 10:29 Acetaminophen/ Hydrocodone Bitart ([place] 10/325) 1 tab Q3H PRN ORAL mild pain / fever; Start 07/17/20 at 10:30; Stop 07/24/20 at 10:29 Acetaminophen/ Hydrocodone Bitart ([place] 10/325) 2 tab Q4H PRN ORAL Moderate Pain (Pain Scale 4-6) Last administered on 07/19/20at 23:55; Start 07/17/20 at 10:30; Stop 07/24/20 at 10:29 Al Hydroxide/Mg Hydroxide (Mylanta) 30 ml Q6H PRN ORAL gerd; Start 07/17/20 at 10:30; Stop 08/16/20 at 10:29 Carisoprodol (Soma) 350 mg Q8H PRN ORAL spasm; Start 07/17/20 at 10:30; Stop 08/16/20 at 10:29 Diphenhydramine HCl (Benadryl) 25 mg Q6H PRN ORAL Itching; Start 07/17/20 at 10:30; Stop 08/16/20 at 10:29 Famotidine (Pepcid) 20 mg BID ORAL Last administered on 07/19/20at 18:00; Start 07/17/20 at 18:00; Stop 10/15/20 at 17:59 Hydromorphone HCl (Dilaudid) 1 mg Q3H PRN SUBQ Severe Breakthru Pain (>7); Start 07/17/20 at 10:30; Stop 07/24/20 at 10:29 Magnesium Citrate (Citrate Of Magnesia) 150 ml Q12HR ORAL Last administered on 07/19/20at 20:20; Start 07/19/20 at 20:00; Stop 08/18/20 at 19:59 Naloxone HCl (Narcan) 0.1 mg PRN PRN IVP RR<12/min, pt unarousable; Start 07/17/20 at 10:30; Stop 10/15/20 at 10:29 Ondansetron HCl (Zofran) 4 mg Q4H PRN IVP Nausea & Vomiting Last administered on 07/18/20at 09:16; Start 07/17/20 at 10:30; Stop 08/16/20 at 10:29 Phenol/Menthol (Chloraseptic) 1 spray Q2H PRN ORAL sore throat Last administered on 07/17/20at 16:25; Start 07/17/20 at 10:30; Stop 10/15/20 at 10:29 Plan: I spent over sixty minutes in consultation today. Overrall, pt is doing very well: expect d/c home within the next 36 hours, if not much sooner. Good oral intake; good urine output. Neuro grossly intact. Patient seen with nurse Martino. Tolerating pain off CYTOTECHNOLOGIST/HISTOTECHNOLOGIST; will continue prn SQ dilaudid for severe pain episodes; prn po norco working well for primary analgesia. MAR medication list reviewed. LLQ pain improved. I reassured pt that she is recovering 'on-schedule' after her ALIF procedure. IV heplock'd to ease moving in and out of bed. GI: + BS + flatus No BM No emesis after ALIF. Yesterday's full liquids for lunch, then EZ-chew for dinner tolerated. Start regular diet this am. Dosed with 150 cc po magnesium citrate last night. Will redose with another 150cc this morning if no BM after morning walk. A+O x 3; no SOB, CP. Compliant incentive spirometer usage. Vitals stable, and afebrile. Ambulating well independently, > 400 feet without assistance or assist-device. Expect d/c home to pt's 20yo son AFTER patient has a BM in the hospital. Pt agrees with plan. Rx left for outpatient pain medication usage for #75 norco /. Juan Massey MD Jul 20, 2020 07:02
--- NOTE | 2020-07-20 07:27 | NUR ---
NURSE NOTES: Report given to Mckenna MARTINEZ. Patient ambulated around the unit
--- NOTE | 2020-07-20 07:30 | NUR ---
NURSE NOTES: Received report from Kori MARTINEZ. Patient is awake and oriented, in no apparent distress, reporting no pain at this time, surgical site dressing clean, dry, intact. Patient ambulating independently without issue. Discharge planning is pending patient having a BM, patient instructed to notify RN when she has a BM. Call light within reach, will continue plan of care.
--- NOTE | 2020-07-20 07:50 | NUR ---
NURSE NOTES: Patient had small amount of soft BM. Will continue to monitor.
[2020-07-20 08:00] VITALS: BP 126/78
[2020-07-20] MEDS: Magnesium Citrate Liq Btl ORAL SCH (08:51)
--- NOTE | 2020-07-20 09:15 | NUR ---
NURSE NOTES: Had medium amount soft BM
--- NOTE | 2020-07-20 11:27 | NUR ---
NURSE NOTES: Patient had second bowel movement. Called and notified Dr. Massey, discharge order received and entered. Patient updated on pending discharge.
[2020-07-20 12:00] VITALS: BP 124/71
[2020-07-20] MEDS ORDERED: D5 1/2NS 1000ml IV ONE (13:45)
[2020-07-20] MEDS ORDERED: Tubing IV Secondary IV ONE (13:45)
--- NOTE | 2020-07-20 13:49 | NUR ---
NURSE NOTES: Patient discharged in no apparent distress. IV removed intact, ID band removed. Patient provided with discharge education and verbalized understanding of education. All belongings sent with patient. Patient provided with Rx from Dr. Massey. Escorted off unit via wheelchair by extension service specialist in charge, accompanied by family member to private vehicle.
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
== END 2020-07-20 13:46 | disposition home or self-care (01) | DRG 460 ==
LOC: SDSOVERFLO 07-17 05:24 → 3E 07-17 12:50
PROC: 0SG10A0 Fusion of 2 or more Lumbar Vertebral Joints with Interbody Fusion Device, Anterior Approach, Anterior Column, Open Approach (ICD-10-PCS; principal; 2020-07-17 07:00)
PROC: 0SB20ZZ Excision of Lumbar Vertebral Disc, Open Approach (ICD-10-PCS; principal; 2020-07-17 07:00)
PROC: 0SG30A0 Fusion of Lumbosacral Joint with Interbody Fusion Device, Anterior Approach, Anterior Column, Open Approach (ICD-10-PCS; principal; 2020-07-17 07:00)
PROC: 0SB40ZZ Excision of Lumbosacral Disc, Open Approach (ICD-10-PCS; principal; 2020-07-17 07:00)
DX: M51.86 Other intervertebral disc disorders, lumbar region (principal); Z68.41 Body mass index [BMI] 40.0-44.9, adult; M51.87 Other intervertebral disc disorders, lumbosacral region; Z87.891 Personal history of nicotine dependence; E66.9 Obesity, unspecified; E66.01 Morbid (severe) obesity due to excess calories; Z98.890 Other specified postprocedural states; V89.2XXS Person injured in unspecified motor-vehicle accident, traffic, sequela
CPT/HCPCS: 36415; 72020; 76000; 81025; 86850; 86900; 86901; 87081; 94003; 94150; J2405; J7030; U0002